=== PATIENT | female | born 1995 | race African-American/Black ===

== ENCOUNTER 2020-05-28 14:20 | Emergency (ER) | payer OTHER ==
[~2020-05-28] VITALS: Ht 170.2 cm; Wt 79.4 kg
[2020-05-28] MEDS ORDERED: IBUPROFEN 800800 M1 PO (15:53)
[2020-05-28] MEDS ORDERED: NORCO5 PO (16:27)
[2020-05-28 16:46] VITALS: BP 124/81
== END 2020-05-28 16:47 | disposition home or self-care (01) ==
LOC: M.ERS 14:20
DX: S82.832A Other fracture of upper and lower end of left fibula, initial encounter for closed fracture (principal); W00.0XXA Fall on same level due to ice and snow, initial encounter; Y93.89 Activity, other specified; Y92.89 Other specified places as the place of occurrence of the external cause; Y99.8 Other external cause status

== ENCOUNTER 2021-03-08 03:53 | Emergency (ER) | payer BC ==
[~2021-03-08] VITALS: Ht 157.5 cm; Wt 68.0 kg
[~2021-03-08 03:53] MED LIST: IBUPROFEN 800800 M1 PO; NORCO5 PO
[2021-03-08] MEDS ORDERED: HYDROXYZINE HCL25 M2 PO (04:35)
[2021-03-08] MEDS ORDERED: ZANAFLEX4 M2 PO (04:35)
[2021-03-08 04:41] VITALS: BP 124/68
== END 2021-03-08 04:41 | disposition home or self-care (01) ==
LOC: M.ERS 03:53
DX: F41.9 Anxiety disorder, unspecified (principal); M62.838 Other muscle spasm; M79.641 Pain in right hand; M79.642 Pain in left hand